=== PATIENT | female | born 2000 ===

== ENCOUNTER 2021-11-02 05:40 | Inpatient (IN) | payer SELFPAY ==
[2021-11-02] MEDS ORDERED: Water For Irrigation,Sterile 1,000 ML Container IRR PRN (07:34)
[2021-11-02] MEDS ORDERED: Sodium Chloride 0.9% 20 ML SDV IV PRN (07:34)
[2021-11-02] MEDS ORDERED: Butorphanol 1 MG/ML SDV IVPUSH PRN (07:34)
[2021-11-02] MEDS ORDERED: Sodium Chloride 0.9% 10 ML Syringe FLUSH PRN (07:34)
[2021-11-02] MEDS ORDERED: Lidocaine 1% 50 ML MDV INJECT PRN (07:34)
[2021-11-02] MEDS ORDERED: Carboprost Tromethamine 250 MCG/1 ML Amp IM PRN (07:34)
[2021-11-02] MEDS ORDERED: Sodium Chloride 0.9% 2.5 ML Syringe FLUSH PRN (07:34)
[2021-11-02] MEDS ORDERED: Misoprostol 200 MCG Tab PO PRN (07:34)
[2021-11-02] MEDS ORDERED: Tranexamic Acid 1,000 MG in Sodium Chloride 0.9% 100 ML IV PRN (07:34)
[2021-11-02] MEDS ORDERED: Methylergonovine 0.2 MG/1 ML Amp IM PRN (07:34)
[2021-11-02] MEDS ORDERED: Oxytocin/0.9 % Sodium Chloride 30 UNIT/500 ML BAG IV SCH ×2 (07:45→09:00)
[2021-11-02] MEDS ORDERED: Lactated Ringers 1,000 ML IV SCH (07:45)
[2021-11-02] MEDS ORDERED: ePHEDrine 50 MG/ML SDV IVPUSH PRN ×2 (07:57)
[2021-11-02] MEDS ORDERED: Ropivacaine HCl/PF 400 MG in Premix Bag 1 BAG EPIDUR SCH (08:00)
[2021-11-02] MEDS ORDERED: Misoprostol 25 MCG (1/4 of 100 MCG) Tab VAG PRN (08:49)
[2021-11-02] MEDS ORDERED: Terbutaline 1 MG/ML SDV SUBCUT PRN (08:49)
[2021-11-02] MEDS ORDERED: Bisacodyl 10 MG Supp RECTAL PRN (19:10)
[2021-11-02] MEDS ORDERED: Benzocaine/Menthol 20%-0.5% Spray 78 GM Cannister TOP PRN (19:10)
[2021-11-02] MEDS ORDERED: Ibuprofen 400 MG Tab PO PRN (19:10)
[2021-11-02] MEDS ORDERED: Docusate Sodium 100 MG Cap PO PRN (19:10)
[2021-11-02] MEDS ORDERED: oxyCODONE 5 MG Tab PO PRN (19:10)
[2021-11-02] MEDS ORDERED: Acetaminophen 500 MG Tab PO PRN ×2 (19:10)
[2021-11-02] MEDS ORDERED: Witch Hazel Medicated Pads 40/Jar TOP PRN (19:10)
[2021-11-02] MEDS ORDERED: Lanolin 100% Cream 7 GM Tube TOP PRN (19:10)
[2021-11-02] MEDS ORDERED: Ibuprofen 800 MG Tab PO PRN (19:10)
== END 2021-11-03 21:55 | disposition home or self-care (01) | DRG 807 ==
LOC: MW.OBCHECK 05:40 → MW.OB 05:42 → MW.OBCHECK 07:35 → MW.OB 07:35 → OBSVTOIN 18:05 → MW.OB 21:00
PROVIDERS: ADMIT Obstetrics & Gynecology; ATTEND Obstetrics & Gynecology
PROC: 10E0XZZ Delivery of Products of Conception, External Approach (ICD-10-PCS; principal; 2021-11-02)
PROC: 0HQ9XZZ Repair Perineum Skin, External Approach (ICD-10-PCS; 2021-11-02)
DX: O42.92 Full-term premature rupture of membranes, unspecified as to length of time between rupture and onset of labor (principal); Z37.0 Single live birth; Z3A.40 40 weeks gestation of pregnancy; O69.81X0 Labor and delivery complicated by cord around neck, without compression, not applicable or unspecified; O70.0 First degree perineal laceration during delivery; Z20.822 Contact with and (suspected) exposure to COVID-19
CPT/HCPCS: 36415; 59025; 59409; 82803; 82947; 84112; 85014; 85018; 85027; 86592; 86850; 86900; 86901; A9270-GY; J2001; J2590; J7120; U0002